=== PATIENT | male | born 1955 | race Hispanic/Latino ===

== ENCOUNTER 2017-05-15 11:19 | Day surgery (SDC) | payer OTHER ==
[2017-05-15] MEDS ORDERED: NACL BACTERIOSTATIC INFILTRATI ONE (11:48)
[2017-05-15] MEDS ORDERED: NACL 0.9% 1000 ML 1,000 ML ONE (11:56)
[2017-05-15] MEDS ORDERED: DILAUDID IV PRN ×2 (12:06→13:33)
[2017-05-15] MEDS ORDERED: ZOFRAN IV PRN ×2 (12:06→13:33)
--- NOTE | 2017-05-15 12:06 | Anesthesia Consultation ---
Anesthesia Consult and Med Hx Date of service: 05/15/17 - Airway Anesthetic Teeth Evaluation: Good ROM Head & Neck: Adequate Mental/Hyoid Distance: Adequate Mallampati Class: Class I Intubation Access Assessment: Good - Pulmonary Exam CTA: Yes - Cardiac Exam Cardiac Exam: RRR - Pre-Operative Health Status ASA Pre-Surgery Classification: ASA1 Proposed Anesthetic Plan: General - Pulmonary Hx Smoking: No Hx Asthma: No COPD: No Hx Pneumonia: No Hx Sleep Apnea: No (ARMANI PRE SCREEN LOW RISK.) - Cardiovascular System Hx Hypertension: No - Central Nervous System Hx Neuromuscular Disorder: No - Endocrine Hx End Stage Renal Disease: No Hx Cirrhosis: No - Other Systems Hx Alcohol Use: No Hx Substance Use: No Hx Cancer: No
--- NOTE | 2017-05-15 12:06 | Anesthesia Day of Surgery ---
Anesthesia Day of Surgery - Day of Surgery Patient Examined: Yes Patient H&P Reviewed: Yes Patient is NPO: Yes
[2017-05-15] MEDS ORDERED: DIPRIVAN 10 MG/ML IV ONE (12:15)
[2017-05-15] MEDS ORDERED: ANCEF/STERILE WATER 2 GM/20 ML IV NR (12:30)
[2017-05-15 12:34] LABS: Alanine Aminotransferase 38 units/L (7-56); Albumin 3.3 g/dL (3.9-5); BUN/Creatinine Ratio 15; Basophils # (Auto) 0.1 K/mm3 (0.0-0.1); Basophils % (Auto) 0.9 % (0.0-1.8); Blood Urea Nitrogen 16 mg/dL (9-20); Calcium 8.9 mg/dL (8.4-10.2); Eosinophils # (Auto) 0.1 K/mm3 (0.0-0.4); Eosinophils % (Auto) 1.7 % (0.0-4.3); Hematocrit 32.6 % (35.5-45.6); Hemoglobin 10.8 gm/dl (11.8-15.2); Hemolysis Index 0; Lymphocytes % (Auto) 26.5 % (13.4-35.0); Mean Corpuscular HGB Conc 33 % (32-34); Mean Corpuscular Hemoglobin 30 pg (28-32); Mean Corpuscular Volume 90 fl (84-94); Monocytes # (Auto) 0.5 K/mm3 (0.0-0.8); Monocytes % (Auto) 6.4 % (0.0-7.3); Platelet Count 381 K/mm3 (140-440); Red Blood Count 3.61 M/mm3 (3.65-5.03); Red Cell Distribution Width 13.7 % (13.2-15.2)
[2017-05-15] MEDS ORDERED: OMNIPAQUE 300 MG/50 ML (CATH LAB) IV ONE (12:55)
[2017-05-15] MEDS ORDERED: WATER FOR IRRIG STERILE IR ONE (12:55)
[2017-05-15] MEDS ORDERED: NACL 0.9% 1000 ML 1,000 ML IV SCH (13:00)
[2017-05-15] MEDS ORDERED: VERSED IV NR (13:00)
[2017-05-15] MEDS ORDERED: DECADRON ONE (13:04)
[2017-05-15] MEDS ORDERED: ZOFRAN ONE (13:04)
[2017-05-15] MEDS ORDERED: XYLOCAINE MPF 2% ONE (13:04)
[2017-05-15] MEDS ORDERED: NEO SYNEPHRINE/NS Syringe(OR USE) IV ONE (13:05)
[2017-05-15] MEDS ORDERED: LACTATED RINGERS 1,000 ML IV SCH (14:00)
[2017-05-15 15:29] VITALS: BP 118/72
--- NOTE | 2017-05-16 07:41 | Fluoroscopy Report ---
FLUOROSCOPY RETROGRADE UROGRAPHY: FLUOROSCOPY URETER/NEPHROSTOMY DILATATION RIGHT: HISTORY: Right ureteral stone. FINDINGS: Fluoroscopy was provided by radiology during retrograde urography by the urologist. 11 fluoroscopic images were captured. Foil Spinner film of the abdomen demonstrates a right ureteral stent which appears in good position. A calcification overlies the distal portions of the stent which probably represents a right ureteral stone. Subsequent images demonstrate balloon dilatation of the distal right ureter and replacement of the right ureteral stent. The right ureteral stone was removed per the operative note. Correlate with the report as needed. IMPRESSION: Right ureteral stone removal. Right ureteral stent exchange.
--- NOTE | 2017-05-16 07:41 | Fluoroscopy Report ---
FLUOROSCOPY RETROGRADE UROGRAPHY: FLUOROSCOPY URETER/NEPHROSTOMY DILATATION RIGHT: HISTORY: Right ureteral stone. FINDINGS: Fluoroscopy was provided by radiology during retrograde urography by the urologist. 11 fluoroscopic images were captured. Front [employer] Software Developer film of the abdomen demonstrates a right ureteral stent which appears in good position. A calcification overlies the distal portions of the stent which probably represents a right ureteral stone. Subsequent images demonstrate balloon dilatation of the distal right ureter and replacement of the right ureteral stent. The right ureteral stone was removed per the operative note. Correlate with the report as needed. IMPRESSION: Right ureteral stone removal. Right ureteral stent exchange.
--- NOTE | 2017-05-19 14:33 | Operative Report ---
PREOPERATIVE DIAGNOSIS: Right distal ureteral stone. POSTOPERATIVE DIAGNOSIS: Right distal ureteral stone. PROCEDURE: Cystoscopy, balloon dilation of distal ureter 5 mm balloon, ureteroscopy, stone basket extraction, right stent placement, 6-Andorran, staged for future removal. SPECIMEN: None. SURGEON: Chase Lane MD ANESTHESIA: General. PATHOLOGY: None. CONDITION: Stable. DISPOSITION: PACU. CLINICAL INDICATIONS: Counseled RCBA, antibiotics, SCDs, previous stent placed for urgent stone treatment. fevers, and hydro, now for staged procedure. DESCRIPTION OF PROCEDURE: The patient was transferred to OR suite in supine position, anesthesia, dorsal lithotomy, prepped and draped in standard fashion. A 20-Andorran scope passed, wire passed adjacent to the stent to the right renal pelvis. Stent pulled out. Distal ureter balloon passed, ureteral balloon passed approximately 3 cm up, dilated 7-9 atmospheres for approximately 90 seconds, removed. Rigid ureteroscope passed up the right ureter. A stone was identified, 3-prong grasper was passed, pulled the stone out intact. The scope passed up the proximal ureter. No significant residual stones identified. Scope withdrawn. Contrast injected, confirmed our position. Wire backloaded on the cystoscope. A 6-Andorran double-J stent passed over the wire under direct and fluoroscopic visualization. When the wire was removed, there was ____ nice proximal and distal J within the bladder, bladder drained. The patient was awakened and transferred to PACU in good and stable condition. JOB# [id number] ATS/NTS
== END 2017-05-15 15:15 | disposition home or self-care (01) ==
LOC: OR 11:19
PROVIDERS: ATTEND Urology
DX: N20.1 Calculus of ureter (principal); I10 Essential (primary) hypertension
CPT/HCPCS: 36415; 52320; 52332; 52344; 74420; 74485; 80053; 82365; 85025; A4217; C1758; C1769; J0690; J1100; J2250; J2370; J2405; J2704; J7030; Q9967